=== PATIENT | male | born 1960 | race Caucasian/White ===

== ENCOUNTER 2023-11-08 09:47 | Emergency (ER) | payer OTHER ==
[2023-11-08 09:53] VITALS: BP 134/74; PULSE 73; RESP 18; TEMP 98; BMI 27.2
[2023-11-08 10:45] LABS: HEMATOCRIT 43.6 % (35.4-49); HEMOGLOBIN 15.2 GM/dL (11.7-16.9); MCH 29.4 pg (25.7-33.7); MCHC 34.9 g/dl (32.0-35.9); MEAN CELL VOLUME 84.4 fl (80-96); PLATELET COUNT 173 10^3/uL (134-434); RBC 5.17 M/mm3 (4.00-5.60); RDW 14.8 % (11.9-15.9); WHITE BLOOD COUNT 7.3 K/mm3 (4.0-10.0)
[2023-11-08 11:06] LABS: CALCIUM 9.3 mg/dL (8.5-10.1)
[2023-11-08 11:07] LABS: ALBUMIN 4.1 g/dl (3.4-5.0); BLOOD UREA NITROGEN 20.6 mg/dL (7-18)
[2023-11-08 11:10] LABS: CREATININE 0.8 mg/dL (0.55-1.3)
[2023-11-08 11:12] LABS: BILIRUBIN,TOTAL 0.3 mg/dL (0.2-1); TOT PROT 7.7 g/dl (6.4-8.2)
[2023-11-08] MEDS ORDERED: HIV POST EXPOSURE PROPHYLAXIS KIT PO ONE (11:30)
[2023-11-08] MEDS: HIV POST EXPOSURE PROPHYLAXIS KIT PO ONE (11:31)
[2023-11-08 12:00] LABS: HIV INTERPRETATION NEGATIVE (NEGATIVE)
== END 2023-11-08 11:50 | disposition home or self-care (01) ==
LOC: JERFT 09:47
DX: S61.231A Puncture wound without foreign body of left index finger without damage to nail, initial encounter (principal); W46.1XXA Contact with contaminated hypodermic needle, initial encounter; Y99.0 Civilian activity done for income or pay
CPT/HCPCS: 36415; 80053; 85027; 86704; 86705; 86803; 87340; 87389; 87517; 99283-25